=== PATIENT | male | born 1985 | race Caucasian/White ===

== ENCOUNTER 2017-08-12 09:56 | Emergency (ER) | payer OTHER ==
[~2017-08-12] VITALS: Ht 188 cm; Wt 100.7 kg
[2017-08-12 10:05] VITALS: BP 129/82; Ht 188 cm; Wt 100.7 kg
== END 2017-08-12 11:48 | disposition home or self-care (01) ==
LOC: ED 09:56
DX: G44.209 Tension-type headache, unspecified, not intractable (principal)
CPT/HCPCS: 99406; J0780; J1885

== ENCOUNTER 2017-12-15 23:16 | Emergency (ER) | payer SELFPAY ==
[~2017-12-15] VITALS: Ht 188 cm; Wt 111.1 kg
[2017-12-15 23:40] VITALS: Ht 188 cm; Wt 111.1 kg
[2017-12-16 03:00] VITALS: BP 138/79
== END 2017-12-16 02:55 | disposition home or self-care (01) ==
LOC: ED 23:16
DX: S90.32XA Contusion of left foot, initial encounter (principal); W45.0XXA Nail entering through skin, initial encounter; Y93.89 Activity, other specified; Y92.89 Other specified places as the place of occurrence of the external cause; Y99.8 Other external cause status
CPT/HCPCS: 90715; J1885